=== PATIENT | male | born 1975 | race Caucasian/White ===

== ENCOUNTER 2022-07-05 21:18 | Emergency (ER) | payer OTHER ==
[~2022-07-05] VITALS: Ht 167.6 cm; Wt 90.7 kg
[2022-07-05] MEDS ORDERED: ALBU90OI INH (21:22)
[2022-07-05] MEDS ORDERED: Prednisone20 MG PO (21:31)
== END 2022-07-05 21:57 | disposition home or self-care (01) ==
LOC: ER 21:18
DX: J45.901 Unspecified asthma with (acute) exacerbation (principal); B34.9 Viral infection, unspecified; Z79.899 Other long term (current) drug therapy; Z87.891 Personal history of nicotine dependence
CPT/HCPCS: 99285; A9270; J7512